=== PATIENT | male | born 1990 | race Caucasian/White ===

== ENCOUNTER 2023-09-24 10:26 | Emergency (ER) | payer SELFPAY ==
[2023-09-24 10:39] VITALS: BP 138/103; PULSE 110; RESP 18; TEMP 36.9; O2SAT 99; BMI 24.4
--- NOTE | 2023-09-24 10:53 | ED_ITS ---
HPI - Skin/Abscess/Foreign Bdy General Chief complaint: Skin/Abscess/Foreign Body Stated complaint: BACK PAIN Time Seen by Provider: 09/24/23 10:53 Source: patient Mode of arrival: walk-in Limitations: no limitations History of Present Illness HPI narrative: this patient's here with an abscess/infection and his perineum area. He's had these before. He says it started to drain and open today. He is not on any anti biotics. He is not a diabetic and has no immunocompromising disorders. He does drink beer on a daily basis and we did address that problem. He's not had fever shakes or chills. He does have a bathtub at home. Does not have any other complaints today. Related Data Home Medications Medication Instructions Recorded Confirmed No Known Home Medications 09/24/23 09/24/23 Allergies Allergy/AdvReac Type Severity Reaction Status Date / Time No Known Drug Allergies Allergy Verified 09/24/23 10:39 PFSH PFSH Social History Smoking status: Never smoker Exam Narrative Exam Narrative: well-hydrated well-nourished male does not appear ill. Blood pressure vital signs stable. Problem focused examination shows in the perineum area to the left of the midline he has small areas have already started spontaneously opening and draining. Utilities had previous infections from the chronic skin changes in this area. Aggressive palpation was done of the entire area including the perirectal area there is no subcutaneous tenderness or abscess formation at this time. Scrotum is not involved. Constitutional Vital Signs, click to edit/add: Last Vital Signs Temp 98.5 F 09/24/23 10:39 Pulse 110 H 09/24/23 10:39 Resp 18 09/24/23 10:39 BP 138/103 H 09/24/23 10:39 Pulse Ox 99 09/24/23 10:39 Course Vital Signs Vital signs: Vital Signs Temperature 98.5 F 09/24/23 10:39 Pulse Rate 110 H 09/24/23 10:39 Respiratory Rate 18 09/24/23 10:39 Blood Pressure 138/103 H 09/24/23 10:39 Pulse Oximetry 99 09/24/23 10:39 Temperature 98.5 F 09/24/23 10:39 Pulse Rate 110 H 09/24/23 10:39 Respiratory Rate 18 09/24/23 10:39 Blood Pressure 138/103 H 09/24/23 10:39 Pulse Oximetry 99 09/24/23 10:39 MDM - Skin/Abscess/Foreign Bdy MDM Narrative Medical decision making narrative: it was emphasized this patient must take warm sitz baths at least four times a day for thirty [address]. [address] him on antibiotics. He should return here should he have worsening redness or an abscess type of mass forms. Discharge Plan Discharge Chief Complaint: Skin/Abscess/Foreign Body Clinical Impression: Soft tissue infection Patient Disposition: Home, Self-Care Time of Disposition Decision: 10:59 Prescriptions / Home Meds: No Action No Known Home Medications Additional Instructions: frequent soaks in the bathtub as discussed/Keflex/doxycycline Stand Alone Forms: Portal Instructions Referrals: GAYATRI RAYMOND [Primary Care Provider] - 1 week
== END 2023-09-24 12:34 | disposition home or self-care (01) ==
LOC: ER 12:38
PROVIDERS: Emergency Provider Emergency Medicine Emergency Medical Services; PCP Internal Medicine
DX: M79.89 Other specified soft tissue disorders (principal)
CPT/HCPCS: 99283

== ENCOUNTER 2024-11-16 00:23 | Emergency (ER) | payer SELFPAY ==
[2024-11-16] VITALS (25 sets, daily range): BP systolic 112–133; BP diastolic 65–94; PULSE 99–143; TEMP 36.7–39.3; O2SAT 92–95; BMI 29.4
--- NOTE | 2024-11-16 00:35 | XR_ITS ---
The [address] [address] Patient Name: CLARITA FISHMAN MRN: [id number] date: 1990 Sex: M Assigned Patient Location: ER Current Patient Location: ER Accession/Order Number: [id number] Exam Date: 11/16/2024 00:45 Report Date: 11/16/2024 01:29 At the request of: DANIELLA MARKER Procedure: XR chest 1V SINGLE VIEW CHEST: 11/16/2024 12:45 AM EST CLINICAL HISTORY:SOB COMPARISONS: None. TECHNIQUE: Single frontal view of the chest, utilizing portable technique. Portable radiography should be considered a technically compromised study. Strongly consider dedicated PA and lateral chest radiographs, as clinically indicated. FINDINGS: LINES AND TUBES: Cardiac monitoring leads and wires overlie the patient. CARDIAC SILHOUETTE: Within normal limits. MEDIASTINAL AND HILAR CONTOUR: Within normal limits. PULMONARY PARENCHYMA AND PLEURA: No consolidation, edema, effusion, or pneumothorax. Clear lungs. OSSEOUS STRUCTURES:Nothing significant. OTHER COMMENTS:None. XR/XR chest 1V IMPRESSION: No acute findings. This report was generated with voice recognition software. Effort has been made to ensure accuracy of this report, however, occasional wording errors may persist. Please contact our office with any questions. Electronically authenticated by: RICARDA OROZCO Date: 11/16/2024 01:29
--- NOTE | 2024-11-16 00:35 | ECG_ITS ---
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
--- NOTE | 2024-11-16 00:35 | ED.SOB1 ---
HPI - SOB/Dyspnea General Chief Complaint: Shortness of Breath/Dyspnea Stated Complaint: CHEST PAIN, SOB Time Seen by Provider: 11/16/24 00:30 Source: patient Mode of arrival: walk-in Limitations: no limitations History of Present Illness HPI Narrative: This 34-year-old old male, smoker presents for evaluation of 2 days of fever, cough, productive sputum with white to green phlegm with diarrhea and chest pain. The patient states he feels like he cannot take a deep breath. He is also having diarrhea with generalized abdominal pain. He denies any nausea or vomiting. He states his mouth feels dry. He was noted to be febrile tachycardic and tachypneic upon arrival. Patient drove himself to the emergency department. Related Data Home Medications ?Medication ?Instructions ?Recorded ?Confirmed No Known Home Medications 09/24/23 09/24/23 Allergies Allergy/AdvReac Type Severity Reaction Status Date / Time No Known Drug Allergies Allergy Verified 11/16/24 00:29 Review of Systems ROS Status of ROS 10 or more systems reviewed and unremarkable except as noted in history and below PFSH PFS Social History Smoking status: Never smoker Little interest or pleasure in doing things: not at all Feeling down, depressed, or hopeless: not at all Exam Narrative Exam Narrative: Vital signs and Nursing Notes reviewed: Patient is febrile with a temperature of 102.8, tachycardic with a pulse of 140, tachypneic with respiratory rate of 22, blood pressures mildly elevated 133/94 and he is borderline hypoxic with pulse ox of 94% on room air General: Awake, alert, oriented, nontoxic but ill-appearing male, no respiratory distress, harsh cough noted HEENT: Normocephalic atraumatic, mucous membranes are dry Neck: Supple, no meningeal signs, no anterior or posterior cervical lymphadenopathy Chest: Coarse rhonchi in all lung coelho CVS: Regular rate and rhythm S1-S2, tachycardic with pulse in the 140s upon arrival no murmurs rubs or gallops, pulses are brisk and equal bilaterally ABD: Soft, nondistended, generalized tenderness with no rebound guarding or rigidity, bowel sounds are normal, no pulsatile masses appreciated Extremities: Moving all extremities, no lower extremity tenderness or swelling noted, negative Homans' sign, pulses are brisk and equal bilaterally Skin: Flushed Neuro: No focal deficits Constitutional Vital Signs, click to edit/add: Last Vital Signs Temp 99.1 F 11/16/24 02:37 Pulse 105 H 11/16/24 02:37 Resp 18 11/16/24 02:37 BP 124/65 11/16/24 02:37 Pulse Ox 93 L 11/16/24 02:37 O2 Del Method Room Air 11/16/24 01:01 Course Vital Signs Vital signs: Vital Signs Temperature 102.8 F H 11/16/24 00:29 Pulse Rate 141 H 11/16/24 00:29 Respiratory Rate 22 H 11/16/24 00:29 Blood Pressure 133/94 H 11/16/24 00:29 Pulse Oximetry 94 L 11/16/24 00:29 Oxygen Delivery Method Room Air 11/16/24 00:29 Temperature 99.1 F 11/16/24 02:37 Pulse Rate 105 H 11/16/24 02:37 Respiratory Rate 18 11/16/24 02:37 Blood Pressure 124/65 11/16/24 02:37 Pulse Oximetry 93 L 11/16/24 02:37 Oxygen Delivery Method Room Air 11/16/24 01:01 MDM - SOB/Dyspnea MDM Narrative Medical decision making narrative: This 34-year-old male with a history of tobacco use presents for evaluation of 2 days of cough, chest congestion, fevers, chills, body aches and diarrhea. Patient is extremely anxious upon arrival is noted to be febrile tachycardic and mildly hypoxic. He had coarse rhonchi in all lung coelho and was given a DuoNeb treatment. An IV was placed and he was medicated with IV fluids Toradol and Tylenol. He is positive for influenza A. Negative for COVID-19. His white count is elevated at 15. Hemoglobin is stable. Electrolytes are normal but he does have an elevated creatinine at 1.87. BUN is also mildly elevated at 20. His D-dimer was elevated at 0.65. Lactic acid, troponin and BNP are all normal. CT angio of the chest was ordered to rule out pulmonary embolism. It shows a reticulonodular pattern in the right upper lobe and calcified granulomas. It also shows a fatty liver but is otherwise negative for pulmonary embolism or focal pneumonia. After 2 L of normal saline he is feeling better. He is alert. Oriented. Vital signs have stabilized. He is tolerating a popsicle. The results of the labs were discussed with him. He will be discharged home with a prescription for an albuterol MDI, Bromfed-DM, Tamiflu, doxycycline for the elevated white count and reticulonodular pattern in the right upper lobe concerning for possibly early pneumonia in a smoker as well as ibuprofen for fevers and pain. He was encouraged to drink plenty of fluids and return to the emergency department for worsening symptoms or any concerns. Medical Records Medical records narrative: The [address] [address] [address] Scan Report Signed Patient: CLARITA FISHMAN MR#: [id number] : 1990 Acct:[id number] Age/Sex: 34 / M ADM Date: 11/16/24 Loc: ER Attending Dr: Ordering Physician: Daniella Morales Date of Service: 11/16/24 Procedure(s): CT angio chest Accession Number(s): [id number] cc: Physician,Non-Staff M.D.~ The [address] [address] Patient Name: CLARITA FISHMAN MRN: [id number] date: 1990 Sex: M Assigned Patient Location: ER Current Patient Location: ER Accession/Order Number: [id number] Exam Date: 11/16/2024 02:02 Report Date: 11/16/2024 02:49 At the request of: DANIELLA MORALES Procedure: CT angio chest CTA OF THE CHEST WITH CONTRAST: 11/16/2024 2:02 AM EST HISTORY: Chest pain with elevated d-dimer. TECHNIQUE: Initially, thin section noncontrast images through portions of the chest were obtained for the purpose of establishing proper bolus timing of contrast. Subsequently, thin section axial CT images were obtained through the chest after intravenous administration of nonionic IV contrast as per protocol.. To optimally assess the thoracic vasculature, the original axial data was used to create 3D volume rendered, multiplanar reformatted and/or maximum intensity projection images in various planes. The axial and reformatted data were reviewed for this report. On a separate workstation, 3-D reconstructions of the thoracic aorta and pulmonary arteries obtained and reviewed. Dose reduction techniques were achieved by using automated exposure control and/or adjustment of mA and/or kV according to patient size and/or use of iterative reconstruction technique. . COMPARISON: None. FINDINGS: Bolus opacification of the pulmonary arteries was adequate for purposes of diagnosis. There is no central, lobar, or segmental pulmonary arterial filling defect to suggest pulmonary embolus. There is some subtle reticular nodular changes involving the right upper lobe. Multiple calcified granulomas are seen in the superior segment right lower lobe, largest 6 mm. No noncalcified mass or nodule seen bilaterally. Lungs otherwise clear. No pneumothorax or pleural effusion. Partially calcified right hilar lymph node again likely from old granulomatous disease. Some small nonenlarged likely reactive subcarinal lymph nodes. No left hilar or mediastinal adenopathy. Normal appearance and caliber thoracic aorta and arch vessels. No aneurysm. No dissection. Cardiac chambers are normal in size. No pericardial fluid. Pulmonary arteries are normal in size. No pulmonary venous congestion. Normal GE junction and imaged stomach. There is severe hepatic steatosis. No acute upper abdominal pathology. No body wall mass or axillary adenopathy. Normal thyroid gland. Normal thoracic osseous structures. CT/CT angio chest IMPRESSION: 1. Negative for PE. 2. Question of some subtle reticular nodular infiltrative changes right upper lobe along bronchovascular markings. Could reflect atypical viral or nontuberculous mycobacterial infection. Correlate with symptoms. Subtle changes. 3. Sequelae of old granulomatous disease with calcified right lower lobe lung granulomas; calcified right hilar lymph node. 4. Severe hepatic steatosis. Lab Data Attestation: I reviewed the patient's lab results. Labs: Lab Results 11/16/24 11/16/24 11/16/24 Range/Units 00:35 00:44 01:02 WBC 15.0 H (4.0-11.0) 10^3/uL RBC 5.28 (4.70-6.10) 10^6/uL Hgb 17.1 (14.0-18.0) g/dL Hct 48.0 (42.0-54.0) % MCV 90.9 (80.0-94.0) fL MCH 32.4 (25.9-34.0) pg MCHC 35.6 H (29.9-35.2) g/dL RDW 12.5 (11.0-15.0) % Plt Count 227 (150-450) 10^3/uL MPV 9.7 (9.5-13.5) fL Neut % (Auto) 82.6 H (43.0-75.0) % Lymph % (Auto) 7.5 L (20.5-60.0) % [place] % (Auto) 9.1 (1.7-12.0) % Eos % (Auto) 0.2 L (0.9-7.0) % Baso % (Auto) 0.3 (0.2-2.0) % Neut # (Auto) 12.4 H (1.4-6.5) 10^3/uL Lymph # (Auto) 1.1 L (1.2-3.8) 10^3/uL [place] # (Auto) 1.4 H (0.3-0.8) 10^3/uL Eos # (Auto) 0.0 (0.0-0.7) 10^3/uL Baso # (Auto) 0.1 (0.0-0.1) 10^3/uL Abs Immat Gran (auto) 0.05 H (0.00-0.03) 10^3/uL Imm/Tot Granulo (auto) 0.3 (0.0-0.5) % D-Dimer 0.65 H* (<=0.59) mg/L FEU Sodium 133 L (136-145) mmol/L Potassium 3.8 (3.5-5.1) mmol/L Chloride 95 L (98-107) mmol/L Carbon Dioxide 21.5 (21.0-32.0) mmol/L Anion Gap 20.3 BUN 20.0 H (7.0-18.0) mg/dL Creatinine 1.87 H (0.70-1.30) mg/dL Est GFR ( Amer) 50 L (>=60 mL/min/1.73m^2) Est GFR (Non-Af Amer) 42 L (>=60 mL/min/1.73m^2) BUN/Creatinine Ratio 10.7 Glucose 121 H (74-106) mg/dL Lactate 1.2 (0.4-2.0) mmol/L Calcium 9.2 (8.5-10.1) mg/dL Total Bilirubin 0.5 (0.2-1.0) mg/dL AST 56 H (15-37) U/L ALT 77 H (16-63) U/L Alkaline Phosphatase 70 (46-116) U/L Troponin I High Sens 6.4 (4.0-76.1) pg/mL NT-Pro-B Natriuret Pep 21.0 (<=450.0) pg/mL Total Protein 9.2 H (6.4-8.2) g/dL Albumin 4.2 (3.4-5.0) g/dL Globulin 5.0 g/dL Albumin/Globulin Ratio 0.8 Influenza Type A Ag Positive A Influenza Type B Ag Negative SARS-CoV-2 Ag (CV2AG) Negative (NEGATIVE) ABG Data Interpretation: [place] [address] XRay Report Signed Patient: CLARITA FISHMAN MR#: [id number] : 1990 Acct:[id number] Age/Sex: 34 / M ADM Date: 11/16/24 Loc: ER Attending Dr: Ordering Physician: Daniella Morales Date of Service: 11/16/24 Procedure(s): XR chest 1V Accession Number(s): [id number] cc: Daniella Morales; Physician,Non-Staff M.D.~ The [address] [address] Patient Name: CLARITA FISHMAN MRN: [id number] date: 1990 Sex: M Assigned Patient Location: ER Current Patient Location: ER Accession/Order Number: [id number] Exam Date: 11/16/2024 00:45 Report Date: 11/16/2024 01:29 At the request of: DANIELLA MORALES Procedure: XR chest 1V SINGLE VIEW CHEST: 11/16/2024 12:45 AM EST CLINICAL HISTORY:SOB COMPARISONS: None. TECHNIQUE: Single frontal view of the chest, utilizing portable technique. Portable radiography should be considered a technically compromised study. Strongly consider dedicated PA and lateral chest radiographs, as clinically indicated. FINDINGS: LINES AND TUBES: Cardiac monitoring leads and wires overlie the patient. CARDIAC SILHOUETTE: Within normal limits. MEDIASTINAL AND HILAR CONTOUR: Within normal limits. PULMONARY PARENCHYMA AND PLEURA: No consolidation, edema, effusion, or pneumothorax. Clear lungs. OSSEOUS STRUCTURES:Nothing significant. OTHER COMMENTS:None. XR/XR chest 1V IMPRESSION: No acute findings. This report was generated with voice recognition software. Effort has been made to ensure accuracy of this report, however, occasional wording errors may persist. Please contact our office with any questions ECG Data Attestation: I personally reviewed and interpreted this ECG as follows: (Sinus tachycardia at 143 bpm, short [place] interval, nonspecific ST changes, normal axis, no acute ST segment elevation or T wave inversion) Discharge Plan Discharge Chief Complaint: Shortness of Breath/Dyspnea Clinical Impression: Influenza A Patient Disposition: Home, Self-Care Time of Disposition Decision: 03:21 Condition: Good Prescriptions / Home Meds: No Action No Known Home Medications Print Language: Libyan Instructions: Influenza (ED) Referrals: GAYATRI RAYMOND [Physician] - 1 week
--- OUTSIDE RECORDS SUMMARY | 2024-11-16 00:38 | XMS_ITS | CCD ---
Author Organization [facility] [employer] [facility] Care Team Providers Care Gm Mobile Name Role Phone Shweta Beltre Unavailable Eduardo DYE Attending Unavailable Allergies Allergy Classification Reported Allergen(s) Allergy Type Date of Onset Reaction(s) Facility (1 source) Carmex Classic Lip [place] Drug allergy Unknown Mart Phase [facility] Other Medications Current Medications Medication Drug Class(es) Dates Sig (Normalized) Sig (Original) predniSONE 20 mg oral tablet (1 source) Start: 05-22-2022 take 1 tablet by mouth every twelve hours predniSONE 20 MG 1 tablet Orally 2 times a day for 5 day(s) May, Active Completed/Discontinued Medications Medication Drug Class(es) Dates Sig (Normalized) Sig (Original) triamcinolone acetonide 40 mg/ml injectable suspension (1 source) Corticosteroid Start: 05-22-2022 Kenalog-40 May, 40 mg Problems Problem Classification Problem Date Documented Da te Episodic/Chronic Allergic reactions (1 source) Unspecified contact dermatitis, unspecified cause Onset: 05-22-2022 Resolved: 05-22-2022 Episodic Results Test Name Value Interpretation Reference Range Facil ity Consenton 03-10-2023 Consent [id number] 05#1.00CD:127 Normal [facility] Registrationon 03-10-2023 Registration [id number] 51#1.00CD:127 Normal [facility] Quick Strepon 11-17-2019 Quick Strep Streptococcus group A rapid screen Negative for Group A Strep Antigen Note 1 -- NOTE 2 Results are those of a screening test. NOTE 3 If clinically indicated please order a culture. NOTE 4 -- NOTE 5 Reference range = Negative PERFORMED BY: [place] [address] PATHOLOGIST STENOTYPE OPERATOR ELADIO HOUSE M.D. Normal [facility] Comment on above: Performed By: #### Q S #### [address] Vital Signs Date Time Vital Sign Value Performing Clinician Facility 05-22-2022 11:25-0400 Body height 182.88 cm Shweta Patt Other [address] [employer] [facility] [employer] Other 05-22-2022 11:25-0400 Body mass index (BMI) [Ratio] 25.09 kg/m2 Shweta Lujanmond Other [facility] Other 05-22-2022 11:25-0400 Body weight 83.92 kg Shweta Lujanmond Other [facility] Other 05-22-2022 11:25-0400 Diastolic blood pressure 80 mm[Hg] Shweta Patt Other [facility] Other 05-22-2022 11:25-0400 Respiratory rate 20 /min Shweta Patt Other [facility] Other 05-22-2022 11:25-0400 SaO2% (BldA) [Mass fraction] 99 % Shweta Patt Other [facility] Other 05-22-2022 11:25-0400 Systolic blood pressure 108 mm[Hg] Shweta Beltre Other [facility] Other Encounters Encounter Date Encounter Type Care Provider Facility Start: 03-10-2023 End: 03-11-2023 ambulatory Eduardo HAYFORK Facility:[facility] Start: 05-22-2022 End: 05-22-2022 ambulatory Shweta Beltre Other [facility] Other Start: 05-22-2022 Office outpatient ne w 20 minutes Shweta Patt [facility] Payers Date Payer Category Payer Policy ID Unknown [id number] 2. [id number] Social History Date Type Detail Facility Sex Assigned At [facility] Other Evaluation note 05-22-2022 Note Date & Type Note Facility 05-22-2022 Evaluation note Encounter Date Diagnosis Assessment Notes May, Contact dermatitis, unspecified contact dermatitis type, unspecified trigger (ICD-10 - L25.9) Drink plenty fluids, get plenty of rest. Take the prednisone as prescribed until gone. Take Benadryl as needed for itching. Use calamine lotion to the rash to dry it up. Follow-up with your family physician if no improvement in 2 to 3 days. May, Other Contact dermatitis home care material was printed [facility] Other History general Narrative - Reported 04-11-2022 Note Date & Type Note Facility 04-11-2022 History general N arrative - Reported Type Medical History diverticulitis Surgical History wrist surgery 2014 Surgical History cyst removal 2014 Surgical History oral surgery 04/2022 [facility] Other Summary Purpose Family History No Family History Records FoundNo Family History Records FoundNo Family History Records Found Advance Directives No Advanced Directives Records FoundNo Advanced Directives Records FoundNo Advanced Directives Records Found Additional Source Comments (unrecognized sect ion and content) No Status Records FoundNo Status Records FoundNo Status Records Found INFORMATION SOURCE (unrecogn ized section and content) DATE CREATED AUTHOR 11/21/2019 [facility] DATE CREATED AUTHOR AUTHOR'S ORGANIZ ATION 11/25/2019 [facility] DATE CREATED AUTHOR AUTHOR'S ORGANIZ ATION 03/20/2023 [facility] REASON FOR VISIT (unrecogniz ed section and content) RIGHT FOOT RASH FOR RECORDS PERTAINING TO PATIENTS WHO ARE OR HAVE BEEN ENROLLED IN A CHEMICAL DEPENDENCY/SUBSTANCEABUSE PROGRAM, SOME INFORMATION MAY BE OMITTED. This clinical summary was aggregated from multiple sources. Caution should be exercised in using it in the provision of clinical care. This summary normalizes information from multiple sources, and as a consequence, information in this document may materially change the coding, format and clinical context of patient data. In addition, data may be omitted in some cases. CLINICAL DECISIONS SHOULD BE BASED ON THE PRIMARY CLINICAL RECORDS. [facility] [employer] [facility]. provides no warranty or guarantee of the accuracy or completeness of information in this document.
[2024-11-16 00:52] LABS: Basophils Absolute Auto 0.1 10^3/uL (0.0-0.1); Basophils Percent Auto 0.3 % (0.2-2.0); Eosinophils Percent Auto 0.2 % (0.9-7.0); Hemoglobin 17.1 g/dL (14.0-18.0); Immature Granulocytes Abs Auto 0.05 10^3/uL (0.00-0.03); Immature Granulocytes Pct Auto 0.3 % (0.0-0.5); Lymphocytes Absolute Auto 1.1 10^3/uL (1.2-3.8); Lymphocytes Percent Auto 7.5 % (20.5-60.0); Mean Corpuscular HGB Conc 35.6 g/dL (29.9-35.2); Mean Corpuscular Hemoglobin 32.4 pg (25.9-34.0); Mean Corpuscular Volume 90.9 fL (80.0-94.0); Mean Platelet Volume 9.7 fL (9.5-13.5); Monocytes Absolute Auto 1.4 10^3/uL (0.3-0.8); Monocytes Percent Auto 9.1 % (1.7-12.0); Neutrophils Absolute Auto 12.4 10^3/uL (1.4-6.5); Neutrophils Percent Auto 82.6 % (43.0-75.0); Platelet Count 227 10^3/uL (150-450); Red Blood Count 5.28 10^6/uL (4.70-6.10); Red Cell Distribution Width 12.5 % (11.0-15.0)
--- NOTE | 2024-11-16 00:52 | PC.NURSE ---
this patient complains of cough, fever, chills onset 5 days ago
[2024-11-16] MEDS: ACETAMINOPHEN 325 MG TABLET 650 MG PO (00:57)
[2024-11-16] MEDS: KETOROLAC TROMETHAMINE 30 MG/ML VIAL IVP (00:58)
[2024-11-16] MEDS: 0.9 % SODIUM CHLORIDE 1,000 ML 1000 ML IV ×2 (00:58→02:24)
[2024-11-16] MEDS: IPRATROPIUM/ALBUTEROL SULFATE 3 ML AMPUL.NEB IH (00:59)
--- NOTE | 2024-11-16 01:19 | PC.NURSE ---
this patient sitting upright n the bed awake and alert, this patient informed that we are now waiting on of the test results to come back, this patient voices no concerns and shows no sign of distress
[2024-11-16 01:26] LABS: Alanine Aminotransferase 77 U/L (16-63); Albumin Globulin Ratio 0.8; Albumin Level 4.2 g/dL (3.4-5.0); Alkaline Phosphatase 70 U/L (46-116); Anion Gap 20.3; Aspartate Amino Transferase 56 U/L (15-37); BUN Creatinine Ratio 10.7; Bilirubin Total 0.5 mg/dL (0.2-1.0); Calcium 9.2 mg/dL (8.5-10.1); Carbon Dioxide 21.5 mmol/L (21.0-32.0); Chloride 95 mmol/L (98-107); Estimated GFR (African America 50 (>=60 mL/min/1.73m^2); Estimated GFR (Non-African Ame 42 (>=60 mL/min/1.73m^2); Glucose 121 mg/dL (74-106); Potassium 3.8 mmol/L (3.5-5.1); Sodium 133 mmol/L (136-145); Total Protein 9.2 g/dL (6.4-8.2)
[2024-11-16 01:28] LABS: Influenza Virus A Antigen Positive; Influenza Virus B Antigen Negative; Internal Control Within Normal Limits; SARS-CoV-2 Ag NEGATIVE (NEGATIVE)
[2024-11-16 01:35] LABS: Troponin I High Sensitivity 6.4 pg/mL (4.0-76.1)
[2024-11-16 01:38] LABS: Lactate/Lactic Acid 1.2 mmol/L (0.4-2.0)
[2024-11-16 01:39] LABS: D Dimer 0.65 mg/L FEU (<=0.59)
--- NOTE | 2024-11-16 01:43 | CT_ITS ---
The [address] [address] Patient Name: CLARITA FISHMAN MRN: [id number] date: 1990 Sex: M Assigned Patient Location: ER Current Patient Location: Accession/Order Number: [id number] Exam Date: 11/16/2024 02:02 Report Date: 11/16/2024 02:49 At the request of: DANIELLA MARKER Procedure: CT angio chest CTA OF THE CHEST WITH CONTRAST: 11/16/2024 2:02 AM EST HISTORY: Chest pain with elevated d-dimer. TECHNIQUE: Initially, thin section noncontrast images through portions of the chest were obtained for the purpose of establishing proper bolus timing of contrast. Subsequently, thin section axial CT images were obtained through the chest after intravenous administration of nonionic IV contrast as per protocol.. To optimally assess the thoracic vasculature, the original axial data was used to create 3D volume rendered, multiplanar reformatted and/or maximum intensity projection images in various planes. The axial and reformatted data were reviewed for this report. On a separate workstation, 3-D reconstructions of the thoracic aorta and pulmonary arteries obtained and reviewed. Dose reduction techniques were achieved by using automated exposure control and/or adjustment of mA and/or kV according to patient size and/or use of iterative reconstruction technique. . COMPARISON: None. FINDINGS: Bolus opacification of the pulmonary arteries was adequate for purposes of diagnosis. There is no central, lobar, or segmental pulmonary arterial filling defect to suggest pulmonary embolus. There is some subtle reticular nodular changes involving the right upper lobe. Multiple calcified granulomas are seen in the superior segment right lower lobe, largest 6 mm. No noncalcified mass or nodule seen bilaterally. Lungs otherwise clear. No pneumothorax or pleural effusion. Partially calcified right hilar lymph node again likely from old granulomatous disease. Some small nonenlarged likely reactive subcarinal lymph nodes. No left hilar or mediastinal adenopathy. Normal appearance and caliber thoracic aorta and arch vessels. No aneurysm. No dissection. Cardiac chambers are normal in size. No pericardial fluid. Pulmonary arteries are normal in size. No pulmonary venous congestion. Normal GE junction and imaged stomach. There is severe hepatic steatosis. No acute upper abdominal pathology. No body wall mass or axillary adenopathy. Normal thyroid gland. Normal thoracic osseous structures. CT/CT angio chest IMPRESSION: 1. Negative for PE. 2. Question of some subtle reticular nodular infiltrative changes right upper lobe along bronchovascular markings. Could reflect atypical viral or nontuberculous mycobacterial infection. Correlate with symptoms. Subtle changes. 3. Sequelae of old granulomatous disease with calcified right lower lobe lung granulomas; calcified right hilar lymph node. 4. Severe hepatic steatosis. Electronically authenticated by: RICARDA OROZCO Date: 11/16/2024 02:49
--- NOTE | 2024-11-16 03:48 | PC.NURSE ---
i gave this patient verbal and written discharge orders along with 5 e-scripts and 1 work note, this patient voices yes to understanding these. at time of discharge this patient voices no concerns and shows no signs of distress
== END 2024-11-16 03:50 | disposition home or self-care (01) ==
PROVIDERS: Emergency Provider Emergency Medicine
DX: J10.1 Influenza due to other identified influenza virus with other respiratory manifestations (principal); R10.84 Generalized abdominal pain; R50.9 Fever, unspecified; R79.89 Other specified abnormal findings of blood chemistry; Z72.0 Tobacco use; K76.0 Fatty (change of) liver, not elsewhere classified; R06.02 Shortness of breath
CPT/HCPCS: 36415; 71045; 71275; 80053; 83605; 83880; 84484; 85025; 85378; 87804; 87811; 93005; 94640; 96361; 96374; 99285; J1885; Q9966; Q9967